=== PATIENT | male | born 1970 | race Caucasian/White ===

== ENCOUNTER 2022-12-22 17:22 | Emergency (ER) | payer OTHER ==
--- OUTSIDE RECORDS SUMMARY | 2022-12-22 17:29 | XMS REPORT | Continuity of Care Document ---
:1970 Author Organization [facility] t Address [address] [place] [place] [address] Care Team Providers Name Role Phone ZACH WILLARD Primary Care Physician Unavailable Bulmaro Hansen Attending Clinician BULMARO MONTELONGO Attending Clinician Unavailable KEERTHI LEAL Attending Clinician Unavailable Keerthi Leal MD Attending Clinician Margot Storm Attending Clinician Doctor Unassigned, [place] Attending Clinician Unavailable King TEVIN MD, James C Attending Clinician Daniel Joshua Attending Clinician DANIEL GONZALEZ Attending Clinician Unavailable February Attending Clinician Unavailable MISSY VENCES Attending Clinician Unavailable Missy Vences DO Attending Clinician ARMAND PALOMARES III Attending Clinician Unavailable Darby Alba Attending Clinician DARBY OM Attending Clinician Unavailable Heber Loredo Attending Clinician [phone] Mony Ruiz PA-C Attending Clinician HEBRE CONNELL Attending Clinician Unavailable Angela Attending Clinician Unavailable ZACH WILLARD Attending Clinician Unavailable ISIS ADKINS Attending Clinician Unavailable MD ISIS ADKINS Attending Clinician Unavailable Angela Admitting Clinician Unavailable MD ISIS ADKINS Admitting Clinician Unavailable ISIS ADKINS Admitting Clinician Unavailable Payers Payer Name Policy Type Policy Number Effective Date Expiration Date S claudette Problems Condition Condition Condition Status Onset Resolution Last Treating Co mments Source Name Details Category Date Date Treatment Clinician Date Arthritis Arthritis Disease Active 2019-11 Overview: Methodi of left of left Formattin st hip hip 00:00: g of this Hospita 00 note l might be different from the original. Added automatic ally from request for surgery [id number] Chronic Chronic Disease Active 2019-11 Methodi pain pain 01-13 disorder disorder 00:00: Hospit a 00 l Other long Other long Disease Active 2019-11 M ethodi term term 01-13 (current) (current) 00:00: Hosp marco a drug drug 00 l therapy therapy Primary Primary Disease Active 2019-11 Methodi localized localized 01-13 st osteoarthr osteoarthr 00:00: Ho spita itis of itis of 00 l pelvic pelvic region and region and thigh thigh Abscess of Abscess of Disease Active M ethodi leg, leg, 06-29 except except 00:00: Hospita foot foot 00 l Benign Benign Disease Active Methodi essential essential 06-29 HTN HTN 00:00: Hospita 00 l Cellulitis Cellulitis Disease Active M ethodi of lower of lower 06-29 extremity extremity 00:00: Hosp marco a 00 l Depression Depression Disease Active M ethodi 06-29 00:00: Hospita 00 l Edema Edema Disease Active Methodi 06-29 00:00: Hospita 00 l Abnormal Abnormal Disease Active 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 00:00: Hospita 00 l Fracture Fracture Disease Active Metho di of rib of rib 06-29 00:00: Hospita 00 l Hematoma Hematoma Disease Active Metho di 06-29 00:00: Hospita 00 l Pain in Pain in Disease Active Methodi joint, joint, 06-29 ankle and ankle and 00:00: Hosp marco a foot foot 00 l Knee pain Knee pain Disease Active Met hodi 06-29 00:00: Hospita 00 l Osteoarthr Osteoarthr Disease Active M ethodi itis itis 06-29 st 00:00: Hospita 00 l Pes Pes Disease Active Methodi anserinus anserinus 06-29 st bursitis bursitis 00:00: Hospit a 00 l No known No known Disease Unive rs active active ity of problems problems [facility] Allergies, Adverse Reactions, Alerts Allergy Allergy Status Severity Reaction(s) Onset Inactive Treating Comm ents Source Name Type Date Date Clinician No Known Propensi Active Method i Drug ty to 06-29 st Allergie adverse 00:00: Hospita s reaction 00 l s to drug NO KNOWN Drug Active Univers ALLERGIE Class ity of S [facility] Family History Family Member Diagnosis Comments Start Date Stop Date Source Natural brother No Known Problems [facility] Natural father No Known Problems [facility] Maternal grandfather Cancer [facility] Maternal grandmother Cancer [facility] Natural mother Diabetes [facility] Paternal grandfather Heart disease [facility] Natural sister No Known Problems [facility] Social History Social Habit Start Date Stop Date Quantity Comments Source Exposure to Not sure University SARS-CoV-2 [facility] (event) [facility] Tobacco Comment 2022-02-24 2022-02-24 VAPE 5 mg Universit y of 00:00:00 00:00:00 [facility] Tobacco use and 2022-01-11 2022-01-11 Never used Universit y of exposure 00:00:00 00:00:00 [facility] Alcohol intake 2021-02-04 2021-02-04 Current [facility] 00:00:00 00:00:00 non-drinker of alcohol (finding) Sex [birth year] [facility] 00:00:00 00:00:00 Smoking Status Start Date Stop Date Source Current every day smoker 2022-01-11 00:00:00 Uni versity of [facility] Never smoked tobacco [facility]ital Medications Ordered Filled Start Stop Current Ordering Indication Dosage Frequency Signature Comments Components Source Medication Medication Date Date Medication? Clinician (SIG) Name Name doxycycline 2021- No [id number] 100mg Take 1 Univers hyclate 100 3-19 03-03 tablet by it y of mg tablet 00:00[place] 04:[place] (two[place] Medical times [place] daily for 10 days. amLODIPine Yes [id number] 5mg Take 1 Univers (NORVASC) 5 2-26 8 tablet by ity of mg tablet 00:00: mouth [place] 00 daily. Medical Branch furosemide Yes [id number] 20mg Take 1 U nivers 20 mg 2-15 tablet by ity of tablet 00:00: mouth [place] 00 every Medical morning Branch and evening. triamcinolo Yes [id number] Apply to Univers ne 2-15 area(s) 2 ity of acetonide 00:00: (two) [place] 0.1 % cream 00 times Medical daily. Branch ketoconazol Yes [id number] Apply to Univers e 2 % cream 1-30 area(s) ity o f 00:00: daily. [place] 00 Medical Branch sulfamethox Yes [id number] 1{tbl} Take 1 Univers azole-trime 1-30 [id number] tablet by i ty of thoprim 00:00: mouth 2 [place] (BACTRIM 00 (two) Medical DS) 800-160 times Branch mg per daily. tablet DULoxetine 2021- No 30mg Q.5D Take 1 Meth rosa maria (CYMBALTA) 8-02 08-[address] 30 MG 00:00: 04:59 (30 mg Hospita capsule 00 :00 total) by l mouth 2 (two) times a day. methylPREDN Yes [id number] 80mg Me thodi ISolone 3-11 st acetate 20:15: Hospita (DEPO-MEDRO 00 l L) injection 80 mg ondansetron Yes 4mg Q8H Take 1 Meth rosa maria (Zofran) 4 1-18 tablet (4 st MG tablet 00:00: mg total) Hos isidra 00 by mouth l every 8 (eight) hours as needed for nausea or vomiting. rivaroxaban 2019-11 Yes 20mg QD Take 1 Meth rosa maria (Xarelto) 2-17 tablet (20 st 20 mg 00:00: mg total) Hospita tablet 00 by mouth l daily. citalopram 2019-11 Yes 20mg QD Take 1 Metho di (CeleXA) 20 0-12 tablet (20 st MG tablet 00:00: mg total) Hos isidra 00 by mouth l daily. bisoprolol 2020-1 Yes 10mg QD Take 1 Metho di (ZEBETA) 10 0-12 tablet (10 st MG tablet 00:00: mg total) Hos isidra 00 by mouth l daily. famotidine 2020-0 Yes TAKE 1 Metho di (PEPCID) 20 9-[address] MG tablet 00:00: MOUTH Hospita 00 TWICE l DAILY ondansetron 2020-0 Yes 4mg Q8H Take 1 Meth rosa maria (Zofran) 4 8-21 tablet (4 st MG tablet 00:00: mg total) Hos isidra 00 by mouth l every 8 (eight) hours as needed for nausea or vomiting. topiramate 2020-0 Yes 50mg Q.5D Take 1 Metho di (TOPAMAX) 8-17 tablet (50 st 50 MG 00:00: mg total) Hospita tablet 00 by mouth 2 l (two) times a day. gabapentin 2020-0 Yes 600mg Q.[id number] Take 1 Methodi (NEURONTIN) 8-[id number] 600 mg 00:00: 3D (600 mg Hospita tablet 00 total) by l mouth 3 (three) times a day. Vital Signs Vital Name Observation Time Observation Value Comments Source Systolic blood 2022-02-24 21:46:00 131 mm[Hg] [facility] Diastolic blood 2022-02-24 21:46:00 81 mm[Hg] [facility] Heart rate 2022-02-24 21:46:00 97 /min [facility] Body temperature 2022-02-24 21:46:00 36.61 [facility] Respiratory rate 2022-02-24 21:46:00 22 /min [facility] Body height 2022-02-24 21:46:00 193 cm [facility] Body weight 2022-02-24 21:46:00 106.595 kg [facility] BMI 2022-02-24 21:46:00 28.61 kg/m2 [facility] Procedures This patient has no known procedures. Plan of Care Planned Activity Planned Date Details Comments Source Future Scheduled 2022-11-09 COVID-19 VACCINE (#1) [facility] Test 07:39:28 [code = COVID-19 VACCINE (#1)] Future Scheduled 2022-11-09 Hepatitis C screening [facility] Hospital Test 07:39:28 (procedure) [code = 307756524] Future Scheduled 2022-11-09 COLONOSCOPY SCREENING [facility] Hospital Test 07:39:28 [code = COLONOSCOPY SCREENING] Future Scheduled 2022-11-09 SHINGLES VACCINES (1 Met [facility] Test 07:39:28 of 2) [code = SHINGLES VACCINES (1 of 2)] Future Scheduled 2022-11-09 INFLUENZA VACCINE Method ist Hospital Test 07:39:28 [code = INFLUENZA VACCINE] Encounters Start End Encounter Admission Attending Care Care Encounter Source Date/Time Date/Time Type Type Clinicians Facility Department ID 2022-02-24 2022-02-24 Office JEMAL Montelongo [id number] Univers 16:30:00 17:00:00 Visit [facility] [id number] ity of [facility] [id number] [id number] [address] 2022-02-24 2022-02-24 [id number] Univers 16:30:00 [facility]30[facility] 2022-02-24 [id number] Univers 16:30:00 16:30:00 BULMARO [facility] 2022-02-16 2022-02-16 Outpatient R [facility] [id number] Univers 16:40:00 16:45:37 [facility]22-[facility]-16 2022-02-16 Urgent Keerthi Leal [facility] 1..[id number] Univers 16:40:00 16:45:37 Care [facility] [id number] ity of [place] 4.2.7.2.686 Nathaniel as ELISA?BLEA [id number] [address] MEDICAL OFFICE BUILDING 2022-02-16 2022-02-16 Orders Doctor HORAN [id number] [id number] Univers 00:00:00 00:00:00 Only Unassigned, SANJU [id number] [facility] 4.2.7.2.686 Nathaniel as [id number] [address] 2022-02-11 2022-02-11 Armand Sandhu [facility] 1.2.840.114 [id number] Univers 00:00:00 00:00:00 [facility] [id number] it y of [place] 4.2.7.2.686 Nathaniel as ELISA?BLEA [id number] [address] MEDICAL OFFICE BUILDING 2022-02-02 2022-02-02 Emergency [facility] [id number] Univers 17:25:00 19:40:00 Daniel BENITEZ 350.1.13.10 i ty [place] [id number] [address] 2022-02-02 2022-02-02 Emergency X [facility] ERT [id number] Univers 17:25:00 19:40:00 DANIEL y [facility] 2022-01-25 2022-01-25 Outpatient [facility] [id number] Univers 16:00:00 16:00:00 RICHARD y [facility] 2022-01-22 2022-01-22 Emergency X [facility] ERT [id number] Univers 13:54:00 14:54:00 MISSY [facility] 2022-01-22 2022-01-22 Emergency [facility] 1.2.840.114 [id number] Univers 13:54:00 14:54:00 Missy BENITEZ 350.1.13.10 [place]2.[place] [id number] [address] 2022-01-22 2022-01-22 Outpatient R YAEL [facility] [id number] Univers 13:40:00 13:40:00 ARMAND y [facility] 2022-01-22 2022-01-22 Outpatient R [facility] [id number] Univers 13:30:00 13:30:00 [facility] 2022-01-22 2022-01-22 Orders Doctor MARLINE 1.2.840.114 [id number] Univers 00:00:00 00:00:00 Only Unassigned, SANJU 350.1.13.10 [facility] 4.2.7.2.686 Nathaniel as [id number] [address] 2022-01-11 2022-01-11 Urgent Armand Palomares [facility] 1.2.840.114 [id number] Univers 17:20:00 17:40:00 Care [facility] [id number] ity of [place] 4.2.7.2.686 Nathaniel as ELISA?BLEA [id number] [address] MEDICAL OFFICE [facility] 2022-01-11 2022-01-11 Outpatient Anabel [facility] [id number] Univers 17:20:00 17:20:00 DARBY ity [facility] 2021-12-26 2021-12-26 Urgent Heber Connell [facility] 1.2 .840.114 [id number] Univers 12:20:00 12:40:00 Care [facility] 350.1.13.10 ity of [place] 4.2.7.2.686 Nathaniel as ELISA?BLEA [id number] [address] MEDICAL OFFICE [facility] 2021-12-26 2021-12-26 Outpatient Anabel [facility] [id number] Univers 12:20:00 12:20:00 HEBER [place] it y [facility] 2021-04-01 2021-04-01 Outpatient Heatly_K VFP VFP [id number] [facility] 09:56:00 09:56:00 [id number] Family Practic e 2021-02-04 2021-02-04 Outpatient ZACH WILLARD [facility] [id number] Neche 00:00:00 00:00:[address] 2020-12-17 2020-12-17 Outpatient JED [facility] [id number] N[place]he 00:00:00 00:00:00 ISIS [address] 2020-12-14 2020-12-14 Outpatient KRAEKEL, [facility] [id number] Neche 00:00:00 00:00:00 ISIS [address] 2020-12-09 2020-12-09 Outpatient KRAEKEL, [facility] [id number] Neche 00:00:00 00:00:00 ISIS [address] 2020-12-09 2020-12-09 Outpatient KRAEKEL, [facility] [id number] Neche 00:00:00 00:00:00 ISIS [address] 2020-11-12 2020-11-12 Outpatient RAND, ZACH [facility] [id number] Neche 00:00:00 00:00:[address] 2020-11-12 2020-11-12 Outpatient RAND, ZACH [facility] [id number] Neche 00:00:00 00:00:[address] 2020-11-11 2020-11-11 Outpatient KRAEKEL, [facility] [id number] Neche 00:00:00 00:00:00 ISIS [address] 2020-11-11 2020-11-11 Outpatient KRAEKEL, [facility] [id number] Neche 00:00:00 00:00:00 ISIS [address] 2020-09-17 2020-09-17 Outpatient KRAEKEL, [facility] [id number] Neche 00:00:00 00:00:00 ISIS [address] 2020-09-15 2020-09-15 Outpatient KRAEKEL, [facility] [id number] Neche 00:00:00 00:00:00 ISIS [address] 2020-09-11 2020-09-11 Outpatient KRAEKEL, [facility] [id number] Neche 00:00:00 00:00:00 ISIS [address] 2020-09-08 2020-09-08 Outpatient KRAEKEL, [facility] [id number] Neche 00:00:00 00:00:00 ISIS [address] 2020-09-03 2020-09-03 Outpatient KRAEKEL, [facility] [id number] Neche 00:00:00 00:00:00 ISIS [address] 2020-09-01 2020-09-01 Outpatient KRAEKEL, [facility] [id number] Neche 00:00:00 00:00:00 ISIS [address] 2020-08-27 2020-08-27 Outpatient KRAEKEL, [facility] [id number] Neche 00:00:00 00:00:00 ISIS [address] 2020-08-26 2020-08-26 Outpatient KRAEKEL, [facility] [id number] Neche 00:00:00 00:00:00 ISIS [address] 2020-08-25 2020-08-25 Outpatient KRAEKEL, [facility] [id number] Neche 00:00:00 00:00:00 ISIS [address] 2020-08-20 2020-08-20 Outpatient KRAEKEL, [facility] [id number] Neche 00:00:00 00:00:00 ISIS [address] 2020-08-17 2020-08-17 Outpatient KRAEKEL, [facility] [id number] Neche 00:00:00 00:00:00 ISIS [address] 2020-08-13 2020-08-13 Outpatient KRAEKEL, [facility] [id number] Neche 00:00:00 00:00:00 ISIS [address] 2020-08-11 2020-08-11 Outpatient KRAEKEL, [facility] [id number] Neche 00:00:00 00:00:00 ISIS [address] 2020-08-10 2020-08-10 Outpatient KRAEKEL, [facility] [id number] Neche 00:00:00 00:00:00 ISIS [address] 2020-08-10 2020-08-10 Outpatient KRAEKEL, [facility] [id number] Neche 00:00:00 00:00:00 ISIS [address] 2020-08-07 2020-08-07 Outpatient KRAEKEL, [facility] [id number] Neche 00:00:00 00:00:00 ISIS [address] 2020-08-05 2020-08-05 Outpatient KRAEKEL, [facility] [id number] Neche 00:00:00 00:00:00 ISIS [address] 2020-08-05 2020-08-05 Outpatient [facility] [id number] Neche 00:00:00 00:00:[address] 2020-07-29 2020-07-29 Outpatient KRAEKEL, [facility] [id number] Neche 00:00:00 00:00:00 ISIS [address] 2020-07-27 2020-07-27 Outpatient KRAEKEL, [place] [address] [id number] Neche 00:00:00 00:00:00 ISIS [address] 2020-07-22 2020-07-22 Outpatient KRAEKEL, [facility] [id number] Neche 00:00:00 00:00:00 ISIS [address] 2020-07-20 2020-07-20 Outpatient KRAEKEL, [facility] [id number] Neche 00:00:00 00:00:00 ISIS [address] 2020-07-17 2020-07-17 Outpatient RAND, ZACH [facility] [id number] Neche 00:00:00 00:00:[address] 2020-07-17 2020-07-17 Outpatient KRAEKEL, [facility] [id number] Neche 00:00:00 00:00:00 ISIS [address] 2020-06-29 2020-06-29 Outpatient KRAEKEL, [facility] [id number] Neche 00:00:00 00:00:00 ISIS [address] 2020-06-04 2020-06-04 Outpatient RAND, [facility] [id number] Neche 00:00:00 00:00:[address] 2020-06-04 2020-06-04 Outpatient RAND, [facility] [id number] Neche 00:00:00 00:00:[address] 2020-03-17 2020-03-17 Outpatient RAND, [facility] [id number] Neche 00:00:00 00:00:[address] 2020-03-17 2020-03-17 Outpatient RAND, [facility] [id number] N[place]he 00:00:00 00:00:[address] Results Test Description Test Time Test Comments Results Result Comments Source SARS-CoV-2 (COVID-19) RNA [Presence] in Respiratory sp ecimen by 2020-12-15 01:57:17 AARTI with probe detection Test Item Value Reference Range Interpretation Comme nts SARS-CoV-2 (COVID-19) RNA [Presence] in Respiratory Not detected No t-Detected specimen by AARTI with probe detection (test code = 73494-6) [id number] (COVID-19) RNA [Presence] in Respiratory specimen by AARTI with probe [id number] 21:19:51 Test Item Value Reference Range Interpretation Comments SARS-CoV-2 (COVID-19) RNA Not detected Not-Detected [Presence] in Respiratory specimen by AARTI with probe detection (test code = 34848-3) [id number] (COVID-19) RNA [Presence] in Respiratory specimen by AARTI with probe [id number] 23:44:08 Test Item Value Reference Range Interpretation Comments SARS-CoV-2 (COVID-19) RNA Not detected Not-Detected [Presence] in Respiratory specimen by AARTI with probe detection (test code = 77614-6) [facility] [place] [address]
--- NOTE | 2022-12-22 18:47 | RAD REPORT ---
EXAM DESCRIPTION: USExtrem Venous W Compress Bil12/22/2022 6:27 pm CLINICAL HISTORY: Leg swelling COMPARISON: none FINDINGS: Echogenic material is present within the periphery of the left superficial femoral and pop liteal veins bilaterally having the appearance of a subacute thrombus. The common femoral, right superficial femoral, greater saphenous, and posterior tibial veins bilatera lly are generally compressible Doppler demonstrates good flow. Grayscale, color and spectral analysis performed on all vessels IMPRESSION: Subacute bilateral lower extremity venous thrombosis No acute thrombus visualized
[2022-12-22 19:24] LABS: Absolute Lymphocytes (CBC) 1.2 K/uL (0.7-4.9); Hematocrit 40.7 % (39.6-49.0); MCV 96.4 fL (80-100); Protime INR 1.14; RBC Red Blood Cell Count 4.22 M/uL (4.33-5.43)
[2022-12-22 19:44] LABS: Potassium 3.6 mmol/L (3.5-5.1)
[2022-12-22 19:45] LABS: Magnesium 2.2 mg/dL (1.6-2.4); Troponin High Sensitivity 4.6 pg/mL (<58.9)
[2022-12-22] MEDS ORDERED: HYDROCODONE/APAP 7.5/325 MG TAB ONE (20:26)
--- NOTE | 2022-12-22 21:01 | RAD REPORT ---
EXAM DESCRIPTION: CT - Chest For Pe Angio - 12/22/2022 8:38 pm CLINICAL HISTORY: Chest pain COMPARISON: None. TECHNIQUE: Dynamically enhanced axial 3 mm thick images of the chest were obtained during administra tion of 100 mL Isovue 370 IV contrast. Coronal and oblique reconstruction images were generated and r eviewed. Exam utilizes a protocol for optimal evaluation of pulmonary arterial tree. Maximum intensity projections 3D imaging was utilized All CT scans are performed using dose optimization technique as appropriate and may include automated exposure control or mA/KV adjustment according to patient size. FINDINGS: A pulmonary embolus is not seen. A thoracic aortic aneurysm is not noted. A pleural effusion is not seen. A pericardial effusion is not seen. A lung consolidation is not present. IMPRESSION: Negative for a pulmonary embolism.
--- NOTE | 2022-12-22 21:01 | RAD REPORT ---
EXAM DESCRIPTION: Any Single View12/22/2022 7:09 pm CLINICAL HISTORY: Shortness of breath COMPARISON: none FINDINGS: The lungs appear clear of acute infiltrate. The heart is normal size IMPRESSION: No acute abnormalities displayed
--- NOTE | 2022-12-22 21:22 | ER ---
Nurse's Notes [facility] Name: Fili Mcmanus Age: 52 yrs Sex: Male : 1970 Arrival Date: 12/22/2022 Time: 17:22 Bed 19 Private MD: Diagnosis: Acute embolism and thrombosis of deep veins of lower extremity-bilateral;Cellulitis of left lower limb Presentation: 12/22 17:34 Chief complaint: Patient states: left leg swelling x 2-3 days ago. Pt states "I think I aa5 have blood clots again". Coronavirus screen: At this time, the client does not indicate any symptoms associated with coronavirus-19. Ebola Screen: Patient denies travel to an Ebola-affected area in the 21 days before illness onset. Initial Sepsis Screen: Does the patient meet any 2 criteria? No. Patient's initial sepsis screen is negative. Does the patient have a suspected source of infection? No. Patient's initial sepsis screen is negative. Risk Assessment: Do you want to hurt yourself or someone else? Patient reports no desire to harm self or others. Onset of symptoms was November 2022. 17:34 Acuity: ELSY 3 aa5 17:34 Method Of Arrival: Ambulatory aa5 Historical: - Allergies: 17:32 No Known Allergies; aa5 - PMHx: 17:32 DVT; Hypertensive disorder; aa5 - PSHx: 17:32 Blood clots removed from Right atrium of heart; aa5 - Immunization history:: Adult Immunizations unknown. - Social history:: Smoking status: Patient reports the use of cigarette tobacco products, 2-3 cigarettes a day . Screenin:05 [facility] ED Fall Risk Assessment (Adult) History of falling in the last 3 months, eh3 including since admission No falls in past 3 months (0 pts) Confusion or Disorientation No (0 pts) Intoxicated or Sedated No (0 pts) Impaired Gait Yes (1 pt) Mobility Assist Device Used No (0 pt) Altered Elimination No (0 pt) Score/Fall Risk Level 0 - 2 = Low Risk. Abuse screen: Denies threats or abuse. Denies injuries from another. Nutritional screening: No deficits noted. Tuberculosis screening: No symptoms or risk factors identified. Assessment: 19:05 General: Appears in no apparent distress. uncomfortable, Behavior is calm, cooperative, eh3 appropriate for age. Pain: Complains of pain in left dias, anterior aspect of left ankle and dorsum of left foot. Neuro: Level of Consciousness is awake, alert, obeys commands, Oriented to person, place, time, situation. Cardiovascular: Capillary refill < 3 seconds Patient's skin is warm and dry. Respiratory: Airway is patent Respiratory effort is even, unlabored, Respiratory pattern is regular, symmetrical. GI: No signs and/or symptoms were reported involving the gastrointestinal system. Abdomen is round non-distended. : No signs and/or symptoms were reported regarding the genitourinary system. EENT: No signs and/or symptoms were reported regarding the EENT system. Derm: Skin is pink, warm \\T\\ dry. Musculoskeletal: Swelling present in left dias, anterior aspect of left ankle and dorsum of left foot and right ankle. 20:25 General: Appears in no apparent distress. uncomfortable, Behavior is calm, cooperative. lg3 Pain: Complains of pain in left leg Noted to be grimacing, resistant to movement. Neuro: No deficits noted. Pepper Agitation-Sedation Scale (RASS): 0 - Alert and Calm Level of Consciousness is awake, alert, obeys commands, Oriented to person, place, time, situation. Cardiovascular: No deficits noted. Denies chest pain, shortness of breath, Capillary refill < 3 seconds Clubbing of nail beds is absent JVD is absent Patient's skin is warm and dry. Respiratory: No deficits noted. Airway is patent Trachea midline Respiratory effort is even, unlabored, Respiratory pattern is regular, symmetrical. GI: No deficits noted. No signs and/or symptoms were reported involving the gastrointestinal system. Abdomen is round non-distended. : No deficits noted. No signs and/or symptoms were reported regarding the genitourinary system. EENT: No deficits noted. No signs and/or symptoms were reported regarding the EENT system. Derm: Skin is intact, is healthy with good turgor, Skin is dry, Skin is normal. Musculoskeletal: Swelling present in left leg. 22:03 Reassessment: Patient appears in no apparent distress at this time. No changes from lg3 previously documented assessment. Patient and/or family updated on plan of care and expected duration. Pain level reassessed. Patient is alert, oriented x 3, equal unlabored respirations, skin warm/dry/pink. Patient states feeling better. Patient states symptoms have improved. Vital Signs: 17:34 BP 137 / 92; Pulse 86; Resp 18 S; Temp 97.8(TE); Pulse Ox 100% on R/A; Weight 97.52 kg aa5 (R); Height 6 ft. 4 in. (193.04 cm) (R); 20:30 BP 138 / 73; Pulse 77; Resp 17; Pulse Ox 100% on R/A; lg3 22:03 BP 136 / 78; Pulse 81; Resp 16 S; Pulse Ox 100% on R/A; lg3 17:34 Body Mass Index 26.17 (97.52 kg, 193.04 cm) aa5 ED Course: 17:22 Patient arrived in ED. am2 17:24 Hadley Gamboa PA is PHCP. cp 17:24 Sher Singleton MD is Attending Physician. cp 17:32 Arm band placed on. aa5 17:35 Triage completed. aa5 18:28 US Extremity Venous W Compression Jayjay In Process Unspecified. EDMS 18:56 Laxmi Ochoa, RN is Primary Nurse. eh3 19:05 Patient has correct armband on for positive identification. Placed in gown. Bed in low eh3 position. Call light in reach. Side rails up X2. Client placed on continuous cardiac and pulse oximetry monitoring. NIBP monitoring applied. Door closed. Noise minimized. Lights dimmed. Warm blanket given. 19:05 Inserted saline lock: 20 gauge in right antecubital area, using aseptic technique. eh3 Blood collected. 19:11 XRAY Chest (1 view) In Process Unspecified. EDMS 20:40 CT Chest For PE Angio In Process Unspecified. EDMS 22:03 No provider procedures requiring assistance completed. intact, bleeding controlled, No lg3 redness/swelling at site. Pressure dressing applied. Administered Medications: 20:31 Drug: Hydrocodone-Acetaminophen (7.5 mg-325 mg) 1 tabs Route: PO; lg3 21:43 Follow up: Response: No adverse reaction; Marked relief of symptoms; Pain is decreased lg3 21:30 Drug: Clindamycin 900 mg Route: IVPB; Infused Over: 30 mins; Site: right antecubital; lg3 22:03 Follow up: Response: No adverse reaction; IV Status: Completed infusion; IV Intake: [id number] 22:02 Drug: Xarelto (rivaroxaban) 15 mg Route: PO; lg3 22:03 Follow up: Response: No adverse reaction lg3 Medication: 20:25 VIS not applicable for this client. lg3 Intake: 22:03 IV: 50ml; Total: 50ml. lg3 Outcome: 21:22 Discharge ordered by . nany 22:04 Discharged to home ambulatory. lg3 22:04 Condition: stable 22:04 Discharge instructions given to patient, Instructed on discharge instructions, follow up and referral plans. medication usage, Demonstrated understanding of instructions, follow-up care, medications, Prescriptions given X 3. 22:05 Patient left the ED. lg3 Signatures: Dispatcher [employer] EDMS Ingrid Hawk, RN RN aa5 Hadley Gamboa PA PA cp Moreno, Amanda am2 Karo Fields, RN RN lg3 Laxmi Ochoa, RN RN eh3
--- NOTE | 2022-12-22 21:23 | EDPHYS ---
Physician Documentation [facility] Name: Fili Mcmanus Age: 52 yrs Sex: Male : 1970 Arrival Date: 12/22/2022 Time: 17:22 Bed 19 Private MD: ED Physician Sher Singleton HPI: 12/22 17:40 This 52 yrs old Male presents to ER via Ambulatory with complaints of Leg Swelling. cp 17:40 The patient presents with pain, that is acute, swelling. cp 17:40 The complaints affect the left lower leg and right lower leg. Context: Patient reports cp history of DVT and taking Xarelto in the past but stopped taking medication due to cost and lack of insurance. 17:40 Onset: The symptoms/episode began/occurred 3 day(s) ago. Modifying factors: the cp symptoms are aggravated by weight bearing. Associated signs and symptoms: Pertinent positives: calf tenderness, warmth, Pertinent negatives fever. Severity of symptoms: in the emergency department the symptoms are unchanged, despite home interventions. Historical: - Allergies: 17:32 No Known Allergies; aa5 - PMHx: 17:32 DVT; Hypertensive disorder; aa5 - PSHx: 17:32 Blood clots removed from Right atrium of heart; aa5 - Immunization history:: Adult Immunizations unknown. - Social history:: Smoking status: Patient reports the use of cigarette tobacco products, 2-3 cigarettes a day . ROS: 17:45 Constitutional: Negative for body aches, chills, fever, poor PO intake. cp 17:45 Cardiovascular: Positive for edema, Negative for chest pain, palpitations. cp 17:45 Respiratory: Negative for cough, shortness of breath, wheezing. 17:45 Abdomen/GI: Negative for abdominal pain, nausea, vomiting, and diarrhea. 17:45 Eyes: Negative for injury, pain, redness, and discharge. cp 17:45 ENT: Negative for drainage from ear(s), ear pain, sore throat, difficulty swallowing, difficulty handling secretions. 17:45 MS/extremity: Positive for pain, swelling, tenderness, of the left lower leg and right lower leg. 17:45 Neuro: Negative for altered mental status, dizziness, headache, syncope, weakness. 17:45 All other systems are negative. Exam: 17:50 Constitutional: The patient appears in no acute distress, alert, awake, cp non-diaphoretic, non-toxic, well developed, well nourished, uncomfortable. 17:50 Head/Face: Normocephalic, atraumatic. cp 17:50 Eyes: Periorbital structures: appear normal, Conjunctiva: normal, no exudate, no injection, Sclera: no appreciated abnormality, Lids and lashes: appear normal, bilaterally. 17:50 ENT: External ear(s): are unremarkable, Nose: is normal, Mouth: Lips: moist, Oral mucosa: pink and intact, moist, Posterior pharynx: is normal, airway is patent, no erythema, no exudate. 17:50 Neck: ROM/movement: is normal, is supple, without pain, no range of motions limitations. 17:50 Chest/axilla: Inspection: normal, Palpation: is normal, no crepitus, no tenderness. 17:50 Cardiovascular: Rate: normal, Rhythm: regular, Edema: ankle edema, that is marked, left worse than right, JVD: is not appreciated. 17:50 Respiratory: the patient does not display signs of respiratory distress, Respirations: normal, no use of accessory muscles, no retractions, labored breathing, is not present, Breath sounds: are clear throughout, no decreased breath sounds, no stridor, no wheezing. 17:50 Abdomen/GI: Exam negative for discomfort, distension, guarding, Inspection: abdomen appears normal. 17:50 Back: pain, is absent, ROM is normal. 17:50 Skin: left lower leg with circumferential erythema, increased warmth. 17:50 Neuro: Orientation: to person, place \T\ time. Mentation: is normal, Motor: moves all fours, strength is normal, Sensation: is normal. 19:28 ECG was reviewed by the Attending Physician. cp Vital Signs: 17:34 BP 137 / 92; Pulse 86; Resp 18 S; Temp 97.8(TE); Pulse Ox 100% on R/A; Weight 97.52 kg aa5 (R); Height 6 ft. 4 in. (193.04 cm) (R); 20:30 BP 138 / 73; Pulse 77; Resp 17; Pulse Ox 100% on R/A; lg3 22:03 BP 136 / 78; Pulse 81; Resp 16 S; Pulse Ox 100% on R/A; lg3 17:34 Body Mass Index 26.17 (97.52 kg, 193.04 cm) aa5 MDM: 17:31 Patient medically screened. cp 21:20 Data reviewed: vital signs, nurses notes, lab test result(s), EKG, radiologic studies, cp CT scan, plain films, ultrasound. 21:20 Consideration of Admission/Observation Patient was admitted/placed on observation. I cp considered the following discharge prescriptions or medication management in the emergency department Medications were administered in the Emergency Department. See MAR. Independent interpretation of the following test(s) in the Emergency Department X-Ray: My interpretation is chest xray negative for infiltrates. Care significantly affected by the following chronic conditions: Hypertension. Counseling: I had a detailed discussion with the patient and/or guardian regarding: the historical points, exam findings, and any diagnostic results supporting the discharge/admit diagnosis, lab results, radiology results, the need for outpatient follow up, a family practitioner, to return to the emergency department if symptoms worsen or persist or if there are any questions or concerns that arise at home. Response to treatment: the patient's symptoms have mildly improved after treatment, and as a result, I will discharge patient. 12/22 18:46 Order name: Basic Metabolic Panel; Complete Time: 19:46 12/22 19:46 Interpretation: GFR 78. 12/22 18:46 Order name: CBC with Diff; Complete Time: 19:46 12/22 19:46 Interpretation: Normal except: RBC 4.22; MPV 7.0. 12/22 18:46 Order name: Magnesium; Complete Time: 19:46 12/22 18:46 Order name: NT PRO-BNP; Complete Time: 19:46 12/22 19:46 Interpretation: NT PRO-BNP 204; Reviewed. 12/22 18:46 Order name: PT-INR; Complete Time: 19:46 cp 12/22 18:46 Order name: Troponin HS; Complete Time: 19:46 cp 12/22 17:34 Order name: US Extremity Venous W Compression Jayjay; Complete Time: 19:16 cp 12/22 17:34 Order name: EKG; Complete Time: 17:35 cp 12/22 17:34 Order name: EKG - Nurse/Tech; Complete Time: 19:32 cp 12/22 18:46 Order name: XRAY Chest (1 view); Complete Time: 21:02 12/22 21:02 Interpretation: Report review. 12/22 18:46 Order name: CT Chest For PE Angio; Complete Time: 21:02 12/22 21:03 Interpretation: Report reviewed. 12/22 18:46 Order name: Cardiac monitoring; Complete Time: 19:32 12/22 18:46 Order name: IV Saline Lock; Complete Time: 19:10 12/22 18:46 Order name: Labs collected and sent; Complete Time: 19:10 12/22 18:46 Order name: O2 Per Protocol; Complete Time: 19:10 12/22 18:46 Order name: O2 Sat Monitoring; Complete Time: 19:10 EC:28 Rate is 70 beats/min. Rhythm is regular. IA interval is normal. QRS interval is cp prolonged at 148 msec. QT interval is normal. T waves are Inverted in lead aVR. Interpreted by me. Reviewed by me. Administered Medications: 20:31 Drug: Hydrocodone-Acetaminophen (7.5 mg-325 mg) 1 tabs Route: PO; lg3 21:43 Follow up: Response: No adverse reaction; Marked relief of symptoms; Pain is decreased lg3 21:30 Drug: Clindamycin 900 mg Route: IVPB; Infused Over: 30 mins; Site: right antecubital; lg3 22:03 Follow up: Response: No adverse reaction; IV Status: Completed infusion; IV Intake: [id number] 22:02 Drug: Xarelto (rivaroxaban) 15 mg Route: PO; lg3 22:03 Follow up: Response: No adverse reaction lg3 Disposition Summary: 12/22/22 21:22 Discharge Ordered Location: Home cp Problem: new cp Symptoms: have improved cp Condition: Stable cp Diagnosis - Acute embolism and thrombosis of deep veins of lower extremity - bilateral cp - Cellulitis of left lower limb cp Followup: cp - With: Private Physician - When: 2 - 3 days - Reason: Recheck today's complaints Discharge Instructions: - Discharge Summary Sheet cp - Cellulitis, Adult cp Forms: - Medication Reconciliation Form cp - Thank You Letter cp - Antibiotic Education cp - Prescription Opioid Use cp Prescriptions: - Xarelto 15 mg Oral Tablet - take 1 tablet by ORAL route 2 times per day for 21 days; 42 tablet; Refills: 0, cp Product Selection Permitted - Clindamycin HCl 300 mg Oral Capsule - take 1 capsule by ORAL route every 6 hours for 10 days; 40 capsule; Refills: 0, cp Product Selection Permitted - Tramadol 50 mg Oral Tablet - take 1 tablet by ORAL route every 8 hours as needed; 12 tablet; Refills: 0, cp Product Selection Permitted Signatures: Dispatcher [employer] Ingrid Baca RN RN aa5 Hadley Gamboa PA PA cp Gibson, Lacie, RN RN lg3 Corrections: (The following items were deleted from the chart) 19:46 19:46 Normal except: RBC 4.22. cp cp
[2022-12-22] MEDS ORDERED: CLINDAMYCIN 900MG/D5W 900 MG/50 ML IVPB IV ONE (21:41)
[2022-12-22] MEDS ORDERED: RIVAROXABAN 10 MG TABLET ONE (21:43)
[2022-12-23 00:20] VITALS: TEMP 97.8; O2SAT 100
[2022-12-23 00:22] VITALS: BP 136/78
--- NOTE | 2022-12-23 13:16 | EKG ---
Test Date: 2022-12-22 Test Time: 19:21:[address] Judge: KAR MEASUREMENT RESULTS: Intervals: Rate: 70 MN: 188 QRSD: 148 QT: 434 QTc: 468 [place]: P: 50 MN: 188 QRS: 63 T: 27 INTERPRETIVE STATEMENTS: Normal sinus rhythm Right bundle branch block Abnormal ECG No previous ECG available for comparison Electronically Signed On 12-23-22 13:14:41 [employer] INSPECTOR by Devaughn Nix
== END 2022-12-22 22:05 | disposition home or self-care (01) ==
LOC: ER 17:22
DX: I82.403 Acute embolism and thrombosis of unspecified deep veins of lower extremity, bilateral (principal); L03.116 Cellulitis of left lower limb; I10 Essential (primary) hypertension; F17.210 Nicotine dependence, cigarettes, uncomplicated; Z86.718 Personal history of other venous thrombosis and embolism
CPT/HCPCS: 96365; 93005; 85025; 80048; 36415; 83735; 85610; 84484; 83880; 71275; 71045; 93970; 99284; Q9967

== ENCOUNTER 2024-05-09 14:30 | Emergency (ER) | payer OTHER ==
[2024-05-09] MEDS ORDERED: HYDROCODONE/APAP 10/325 TAB ONE (15:21)
[2024-05-09] MEDS ORDERED: KETOROLAC 30 MG/ML INJ ONE (15:58)
--- NOTE | 2024-05-09 16:03 | RAD REPORT ---
EXAM DESCRIPTION: CT - Pelvis Wo Cont - 05/09/2024 3:03 pm CLINICAL HISTORY: fall, pelvic/left hip pain COMPARISON: Femur Left dated 05/09/2024 TECHNIQUE: Thin cut axial CT imaging of the pelvis was performed without IV contrast. Multiplanar re formats were generated and reviewed. All CT scans are performed using dose optimization technique as appropriate and may include automated exposure control or mA/KV adjustment according to patient size. FINDINGS: No acute fracture. Advanced bilateral hip joint degenerative changes more pronounced on th e left, with joint space loss superiorly and left-sided extensive subchondral cystic changes. Margina l osteophytes, and some heterotopic foci along the anterosuperior left acetabular margin. Small left hip joint effusion. No dilated bowel loops or bowel wall thickening in the pelvis. No free air, free fluid or inflammator y stranding. No hernia, mass or bulky lymphadenopathy. The urinary bladder is partially decompressed limiting evaluation. No suspicious bony findings. IMPRESSION: No acute osseous abnormality. Advanced bilateral hip joint degenerative changes, more pronounced on the left. Small left hip joint effusion.
--- NOTE | 2024-05-09 16:05 | RAD REPORT ---
EXAM DESCRIPTION: US - Extremity Venous Uni Ltd - 05/09/2024 3:19 pm CLINICAL HISTORY: Pain COMPARISON: None. TECHNIQUE: Real-time sonographic evaluation of the left lower extremity deep venous system was perfo rmed. FINDINGS: Normal compressibility, flow augmentation, phasic flow and spontaneous flow is identified in the left lower extremity deep venous system. No intraluminal filling defects seen. IMPRESSION: No DVT in the left lower extremity.
--- NOTE | 2024-05-09 17:37 | RAD REPORT ---
EXAM DESCRIPTION: RAD - Femur Left - 05/09/2024 3:47 pm CLINICAL HISTORY: PAIN COMPARISON: No comparisons TECHNIQUE: Left femur, 2 views. FINDINGS: No fracture is identified. Advanced left hip joint degenerative changes with joint space l oss superiorly. Large marginal osteophytes. Moderate to advanced tricompartmental knee osteoarthritic changes with joint space loss most notable medially. There is no dislocation or periosteal reaction noted. No acute or suspicious bony finding. IMPRESSION: No acute osseous abnormality. Advanced osteoarthritic changes as above.
--- NOTE | 2024-05-09 17:40 | ER ---
Nurse's Notes [facility] Name: Fili Mcmanus Age: 53 yrs Sex: Male : 1970 Arrival Date: 05/09/2024 Time: 14:30 Bed 18 Private MD: Diagnosis: Other bilateral secondary osteoarthritis of hip Presentation: 05/09 14:46 Chief complaint: Patient states: left hip pain that has been increasing over the last as6 several weeks/months. Coronavirus screen: At this time, the client does not indicate any symptoms associated with coronavirus-19. Ebola Screen: No symptoms or risks identified at this time. Initial Sepsis Screen: Does the patient meet any 2 criteria? No. Patient's initial sepsis screen is negative. Does the patient have a suspected source of infection? No. Patient's initial sepsis screen is negative. Risk Assessment: Do you want to hurt yourself or someone else? Patient reports no desire to harm self or others. Onset of symptoms is unknown. 14:46 Acuity: ELSY 3 as6 14:46 Method Of Arrival: Wheelchair as6 Triage Assessment: 14:45 General: Appears uncomfortable, Behavior is calm, cooperative. Pain: Complains of pain as6 in left hip. Historical: - Allergies: 14:46 No Known Allergies; as6 - PMHx: 14:46 DVT; Hypertensive disorder; as6 - PSHx: 14:46 Blood clots removed from Right atrium of heart; knee; foot; ankle; as6 - Immunization history:: Adult Immunizations up to date. - Infectious Disease History:: Denies. - Social history:: Smoking status: Reported history of juuling and/or vaping. - Family history:: not pertinent. - Hospitalizations: : No recent hospitalization is reported. Screenin:55 [facility] ED Fall Risk Assessment (Adult) History of falling in the last 3 months, aa5 including since admission No falls in past 3 months (0 pts) Confusion or Disorientation No (0 pts) Intoxicated or Sedated No (0 pts) Impaired Gait No (0 pts) Mobility Assist Device Used No (0 pt) Altered Elimination No (0 pt) Score/Fall Risk Level 0 - 2 = Low Risk Oriented to surroundings, Maintained a safe environment, Educated pt \T\ family on fall prevention, incl call for assistance when getting out of bed. Abuse screen: Denies threats or abuse. Nutritional screening: No deficits noted. Tuberculosis screening: No symptoms or risk factors identified. Assessment: 14:55 General: Appears comfortable, Behavior is calm, cooperative. Pain: Complains of pain in aa5 left hip Pain currently is 9 out of 10 on a pain scale. Neuro: Level of Consciousness is awake, alert, obeys commands, Oriented to person, place, time, situation. Cardiovascular: Patient's skin is warm and dry. Respiratory: Airway is patent Respiratory effort is even, unlabored, Respiratory pattern is regular, symmetrical. GI: No signs and/or symptoms were reported involving the gastrointestinal system. : No signs and/or symptoms were reported regarding the genitourinary system. EENT: No signs and/or symptoms were reported regarding the EENT system. Derm: Skin is pink, warm \T\ dry. Musculoskeletal: Reports pain in left hip. 15:19 Reassessment: Patient is alert, oriented x 3, equal unlabored respirations, skin aa5 warm/dry/pink. 15:58 Reassessment: Patient is alert, oriented x 3, equal unlabored respirations, skin aa5 warm/dry/pink. states feeling slightly better, requesting more pain medication, MD notified. . 17:00 Reassessment: Patient is alert, oriented x 3, equal unlabored respirations, skin aa5 warm/dry/pink. Patient states feeling better. Patient states symptoms have improved. Provided urinal for elimination needs. . 18:05 Reassessment: Patient is alert, oriented x 3, equal unlabored respirations, skin aa5 warm/dry/pink. Vital Signs: 14:46 BP 137 / 91; Pulse 89; Resp 18; Temp 98.4; Pulse Ox 97% ; Weight 108.86 kg; Height 6 as6 ft. 4 in. ; Pain 9/10; 15:58 BP 133 / 81; Pulse 88; Resp 16 S; Pulse Ox 98% ; aa5 17:00 BP 137 / 85; Pulse 84; Resp 18 S; Pulse Ox 98% on R/A; aa5 14:46 Body Mass Index 29.21 (108.86 kg, 193.04 cm) as6 14:46 Pain Scale: Adult as6 ED Course: 14:36 Patient arrived in ED. mg5 14:36 Max Barr MD is Attending Physician. rn 14:40 Ingrid Hawk, RN is Primary Nurse. aa5 14:45 Arm band placed on. as6 14:50 Triage completed. as6 14:55 Patient has correct armband on for positive identification. Bed in low position. Call aa5 light in reach. Side rails up X 1. 15:05 CT Pelvis wo Cont In Process Unspecified. EDMS 15:21 Extremity Venous Uni Ltd US In Process Unspecified. EDMS 15:49 XRAY Femur LEFT In Process Unspecified. EDMS 17:39 Anuel Estrella MD is Referral Physician. rn 18:05 Patient did not have IV access during this emergency room visit. aa5 18:05 No provider procedures requiring assistance completed. aa5 Administered Medications: 15:23 Drug: [place] PO 10 mg-325 mg 1 tabs PO once Route: PO; aa5 16:01 Follow up: Response: No adverse reaction aa5 16:01 Drug: Ketorolac IM 30 mg IM once Route: IM; Site: left deltoid; aa5 16:40 Follow up: Response: No adverse reaction aa5 Medication: 15:03 VIS not applicable for this client. aa5 Outcome: 17:39 Discharge ordered by MD. rn 18:05 Discharged to home ambulatory, with crutches, aa5 18:05 Condition: stable 18:05 Discharge instructions given to patient, Instructed on discharge instructions, follow up and referral plans. medication usage, Demonstrated understanding of instructions, follow-up care, medications, Prescriptions given X 2, 18:07 Patient left the ED. ss Signatures: Dispatcher [employer] EDGA Max Barr MD MD rn Calderon, Audri, RN RN aa5 Sveta Crouch RN RN ss Julio Hoover RN RN as6 Leydi Martin mg5 Corrections: (The following items were deleted from the chart) 16:02 15:59 Reassessment: Patient is alert, oriented x 3, equal unlabored respirations, skin aa5 warm/dry/pink. states feeling slightly better, requesting more pain medication, MD notified. . aa5
--- NOTE | 2024-05-09 17:40 | EDPHYS ---
Physician Documentation [facility] Name: Fili Mcmanus Age: 53 yrs Sex: Male : 1970 Arrival Date: 05/09/2024 Time: 14:30 Bed 18 Private MD: ED Physician Max Barr HPI: 05/09 14:59 This 53 yrs old Male presents to ER via Wheelchair with complaints of Hip Pain. rn 14:59 The patient or guardian reports decreased range of motion, pain. The complaints affect rn the left hip. Onset: The symptoms/episode began/occurred 8 month(s) ago. Modifying factors: The symptoms are alleviated by nothing, the symptoms are aggravated by nothing. Severity of symptoms: At their worst the symptoms were moderate, in the emergency department the symptoms are unchanged. The patient has experienced similar episodes in the past. The patient has not recently seen a physician. Patient reports chronic foot problems with multiple surgeries in the past. Reports chronic left hip pain as a result of abnormal gait. Also had a fall 2 weeks ago. Has been ambulating this whole year with crutches. Reports pain to left hip. 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 Historical: - Allergies: 14:46 No Known Allergies; as6 - PMHx: 14:46 DVT; Hypertensive disorder; as6 - PSHx: 14:46 Blood clots removed from Right atrium of heart; knee; foot; ankle; as6 - Immunization history:: Adult Immunizations up to date. - Infectious Disease History:: Denies. - Social history:: Smoking status: Reported history of juuling and/or vaping. - Family history:: not pertinent. - Hospitalizations: : No recent hospitalization is reported. ROS: 14:59 Constitutional: Negative for fever, chills, and weight loss, Abdomen/GI: Negative for rn abdominal pain, nausea, vomiting, diarrhea, and constipation, Back: Negative for injury and pain, MS/Extremity: Positive for left leg pain, left hip pain Exam: 14:59 Constitutional: This is a well developed, well nourished patient who is awake, alert, rn and in no acute distress. Cardiovascular: Regular rate and rhythm. No pulse deficits. MS/ Extremity: Pulses equal, no cyanosis. Neurovascular intact. Almost full passive range of motion with minimal pain with extreme flexion of hip, 2+ edema bilateral lower extremities, swollen superficial veins of the left lower extremity. No focal calf tenderness. No palpable cord in popliteal fossa. No focal bony tenderness. Vital Signs: 14:46 BP 137 / 91; Pulse 89; Resp 18; Temp 98.4; Pulse Ox 97% ; Weight 108.86 kg; Height 6 as6 ft. 4 in. ; Pain 9/10; 15:58 BP 133 / 81; Pulse 88; Resp 16 S; Pulse Ox 98% ; aa5 17:00 BP 137 / 85; Pulse 84; Resp 18 S; Pulse Ox 98% on R/A; aa5 14:46 Body Mass Index 29.21 (108.86 kg, 193.04 cm) as6 14:46 Pain Scale: Adult as6 MDM: 14:36 Patient medically screened. rn 17:38 Differential diagnosis: hip fracture, intertrochanteric fracture, bursitis, arthritis, rn strain. Data reviewed: vital signs, nurses notes, radiologic studies, CT scan, plain films, and as a result, I will discharge patient. Counseling: I had a detailed discussion with the patient and/or guardian regarding the historical points, exam findings, and any diagnostic results supporting the discharge/admit diagnosis, radiology results, the need for outpatient follow up, to return to the emergency department if symptoms worsen or persist or if there are any questions or concerns that arise at home. Response to treatment: the patient's symptoms have mildly improved after treatment, and as a result, I will discharge patient. Special discussion: I discussed with the patient/guardian in detail that at this point there is no indication for admission to the hospital. It is understood, however, that if the symptoms persist or worsen the patient needs to return immediately for re-evaluation. ED course: No acute findings and workup. Severe degenerative hips bilaterally with worsening on the left. Recommend Ortho follow-up, has appointment with orthopedist. I have personally reviewed all of the results, including but not limited to imaging deemed necessary to safely discharge this patient at this time. All results given to and printed out for patient. I personally went over all the results with the patient and answered all questions. Patient will follow-up with PCP and or specialist as discussed. Return precautions given and understood.. 05/09 14:53 Order name: XRAY Femur LEFT; Complete Time: 17:38 rn 05/09 14:53 Order name: CT Pelvis wo Cont; Complete Time: 16:29 rn 05/09 14:53 Order name: Extremity Venous Uni Ltd US; Complete Time: 16:29 rn Administered Medications: 15:23 Drug: [place] PO 10 mg-325 mg 1 tabs PO once Route: PO; aa5 16:01 Follow up: Response: No adverse reaction aa5 16:01 Drug: Ketorolac IM 30 mg IM once Route: IM; Site: left deltoid; aa5 16:40 Follow up: Response: No adverse reaction aa5 Disposition Summary: 05/09/24 17:39 Discharge Ordered Notes: Location: Home rn Problem: an ongoing problem rn Symptoms: are unchanged rn Condition: Stable rn Diagnosis - Other bilateral secondary osteoarthritis of hip rn Followup: rn - With: Anuel Estrella MD - When: As needed - Reason: Recheck today's complaints, Re-evaluation by your physician Discharge Instructions: - Discharge Summary Sheet rn - Arthritis rn - Hip Pain rn Forms: - Medication Reconciliation Form 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 EDMS EDMS 14:54 14:54 Pelvis Wo Cont+CT.RAD.BRZ ordered. EDMS EDMS 14:54 14:54 Extremity Venous Uni Ltd+US.RAD.BRZ ordered. EDMS EDMS
[2024-05-09 18:12] VITALS: BP 137/91; TEMP 98.4; O2SAT 97
== END 2024-05-09 18:07 | disposition home or self-care (01) ==
LOC: ER 14:30
DX: M16.6 Other bilateral secondary osteoarthritis of hip (principal)
CPT/HCPCS: 72192; 93971; 96372; 99284